=== PATIENT | female | born 1995 | race Asian ===

== ENCOUNTER 2016-07-15 15:48 | Emergency (ER) | payer OTHER ==
[~2016-07-15] VITALS: Ht 162.6 cm; Wt 69.9 kg
[2016-07-15 16:51] VITALS: BP 133/85; TEMP 98.7
== END 2016-07-15 16:57 | disposition home or self-care (01) ==
LOC: ED 15:48
DX: N39.0 Urinary tract infection, site not specified (principal)
CPT/HCPCS: 81000; 81025; 99282

== ENCOUNTER 2016-07-30 17:45 | Emergency (ER) | payer OTHER ==
[~2016-07-30] VITALS: Ht 162.6 cm; Wt 68.5 kg
[2016-07-30 19:01] VITALS: BP 150/80; TEMP 98
== END 2016-07-30 19:05 | disposition home or self-care (01) ==
LOC: ED 17:45
DX: N76.0 Acute vaginitis (principal); N30.00 Acute cystitis without hematuria
CPT/HCPCS: 81000; 87086; 87088; 99282

== ENCOUNTER 2017-01-11 17:52 | Emergency (ER) | payer OTHER ==
[~2017-01-11] VITALS: Ht 162.6 cm; Wt 69.4 kg
[2017-01-11 19:18] VITALS: BP 136/74; TEMP 98.3
== END 2017-01-11 19:22 | disposition home or self-care (01) ==
LOC: ED 17:52
DX: K12.0 Recurrent oral aphthae (principal)
CPT/HCPCS: 99281

== ENCOUNTER 2018-10-13 23:29 | Emergency (ER) | payer OTHER ==
[~2018-10-13] VITALS: Ht 162.6 cm; Wt 77.6 kg
[2018-10-14 00:55] VITALS: BP 120/65; TEMP 98.6
== END 2018-10-14 00:56 | disposition home or self-care (01) ==
LOC: ED 23:29
DX: B37.3 Candidiasis of vulva and vagina (principal)
CPT/HCPCS: 99281

== ENCOUNTER 2020-03-06 02:25 | Emergency (ER) | payer OTHER ==
[~2020-03-06] VITALS: Ht 162.6 cm; Wt 74.4 kg
[2020-03-06 03:15] VITALS: BP 128/68; TEMP 98.9
== END 2020-03-06 03:17 | disposition home or self-care (01) ==
LOC: ED 02:25
DX: N76.0 Acute vaginitis (principal)
CPT/HCPCS: 81000; 81025; 99282